=== PATIENT | male | born 1945 | race American Indian/Alaskan Native ===

== ENCOUNTER 2017-07-25 13:18 | Outpatient (CLI) | payer MEDICARE ==
[2017-07-25] MEDS ORDERED: XYLOCAINE TOPICAL 4% TP ONE (14:00)
[2017-07-25] MEDS ORDERED: SILVER NITRATE TP ONE ×2 (14:29→16:52)
== END 2017-07-25 13:19 | disposition home or self-care (01) ==
LOC: WOUND 13:18
PROVIDERS: ATTEND Internal Medicine
DX: T87.43 Infection of amputation stump, right lower extremity (principal); I70.231 Atherosclerosis of native arteries of right leg with ulceration of thigh; L97.818 Non-pressure chronic ulcer of other part of right lower leg with other specified severity; K21.0 Gastro-esophageal reflux disease with esophagitis; D50.8 Other iron deficiency anemias; I10 Essential (primary) hypertension; E11.51 Type 2 diabetes mellitus with diabetic peripheral angiopathy without gangrene; F17.200 Nicotine dependence, unspecified, uncomplicated; Y83.2 Surgical operation with anastomosis, bypass or graft as the cause of abnormal reaction of the patient, or of later complication, without mention of misadventure at the time of the procedure
CPT/HCPCS: 11042; 11045; G0463

== ENCOUNTER 2017-08-01 12:46 | Outpatient (CLI) | payer MEDICARE ==
[2017-08-01] MEDS ORDERED: XYLOCAINE TOPICAL 4% TP ONE ×2 (13:26→13:28)
[2017-08-01] MEDS ORDERED: SILVER NITRATE TP ONE ×2 (14:24→14:25)
== END 2017-08-01 12:47 | disposition home or self-care (01) ==
LOC: WOUND 12:46
PROVIDERS: ATTEND Internal Medicine
DX: T87.89 Other complications of amputation stump (principal); I70.239 Atherosclerosis of native arteries of right leg with ulceration of unspecified site; E11.621 Type 2 diabetes mellitus with foot ulcer; L97.111 Non-pressure chronic ulcer of right thigh limited to breakdown of skin; E11.51 Type 2 diabetes mellitus with diabetic peripheral angiopathy without gangrene; D50.8 Other iron deficiency anemias; K21.0 Gastro-esophageal reflux disease with esophagitis; I10 Essential (primary) hypertension; F17.200 Nicotine dependence, unspecified, uncomplicated; Y83.5 Amputation of limb(s) as the cause of abnormal reaction of the patient, or of later complication, without mention of misadventure at the time of the procedure
CPT/HCPCS: 17250

== ENCOUNTER 2017-08-08 13:09 | Outpatient (CLI) | payer MEDICARE ==
[2017-08-08] MEDS ORDERED: XYLOCAINE TOPICAL 4% TP ONE ×2 (13:14→13:19)
== END 2017-08-08 13:10 | disposition home or self-care (01) ==
LOC: WOUND 13:09
PROVIDERS: ATTEND Internal Medicine
DX: T87.89 Other complications of amputation stump (principal); I70.231 Atherosclerosis of native arteries of right leg with ulceration of thigh; E11.622 Type 2 diabetes mellitus with other skin ulcer; L97.811 Non-pressure chronic ulcer of other part of right lower leg limited to breakdown of skin; E11.51 Type 2 diabetes mellitus with diabetic peripheral angiopathy without gangrene; K21.0 Gastro-esophageal reflux disease with esophagitis; D50.8 Other iron deficiency anemias; I10 Essential (primary) hypertension; F17.200 Nicotine dependence, unspecified, uncomplicated; Y83.5 Amputation of limb(s) as the cause of abnormal reaction of the patient, or of later complication, without mention of misadventure at the time of the procedure

== ENCOUNTER 2017-12-31 13:36 | Observation (INO) | payer OTHER, MEDICARE ==
[2017-12-31] MEDS ORDERED: ASPIRIN PO ONE (13:56)
[2017-12-31 14:27] LABS: Basophils # (Auto) 0.1 K/mm3 (0.0-0.1); Basophils % (Auto) 1.2 % (0.0-1.8); Eosinophils % (Auto) 0.3 % (0.0-4.3); Hematocrit 42.1 % (35.5-45.6); Lymphocytes # (Auto) 2.2 K/mm3 (1.2-5.4); Mean Corpuscular HGB Conc 33 % (32-34); Mean Corpuscular Hemoglobin 31 pg (28-32); Mean Corpuscular Volume 93 fl (84-94); Monocytes % (Auto) 10.7 % (0.0-7.3); Platelet Count 227 K/mm3 (140-440); Red Blood Count 4.51 M/mm3 (3.65-5.03); Red Cell Distribution Width 13.4 % (13.2-15.2)
[2017-12-31 14:54] LABS: BUN/Creatinine Ratio 17; Blood Urea Nitrogen 17 mg/dL (9-20); Hemolysis Index 17
[2017-12-31] MEDS ORDERED: NACL 0.9% 1000 ML 500 ML IV ONE (15:10)
--- NOTE | 2017-12-31 15:31 | Emergency Department Report ---
ED General Adult HPI - General Chief complaint: Chest Pain Stated complaint: POSSIBLE CARDIAC Time Seen by Provider: 12/31/17 14:42 Source: EMS Mode of arrival: Stretcher Limitations: No Limitations - History of Present Illness Initial comments: This is a 72-year-old male apparently has some degree of dementia. I am told that he was transported to this facility for evaluation of chest pain. He just tells me that he has chest pain at times. At this point he is complaining of urinary guarding and occasionally discomfort in the suprapubic region. He does not complain of any acute pain. He denies shortness of breath. It is relatively able to give a review of systems. He does not complain of shortness of breath. He denies cough. He denies fever or chills. The patient denies any bedsores. He has bilateral AKA, dyslipidemia and diabetes. -: unknown Location: chest Severity scale (0 -10): 0 Associated Symptoms: denies other symptoms (except as above indicated) - Related Data Home Medications Medication Instructions Recorded Confirmed Last Taken Aspirin 1 tab PO DAILY 12/05/13 12/05/13 12/04/13 Folic Acid 1 mg PO DAILY 12/05/13 12/05/13 12/05/13 Gabapentin 1 cap PO TID 12/05/13 12/05/13 12/05/13 Losartan [Cozaar] 1 tab PO DAILY 12/05/13 12/05/13 12/05/13 Pravastatin Sodium [Pravastatin] 40 mg PO DAILY 12/05/13 12/05/13 Unknown amLODIPine [Norvasc] 1 tab PO DAILY 12/05/13 12/05/13 12/05/13 buPROPion [Wellbutrin] 150 mg PO DAILY 12/05/13 12/05/13 12/05/13 metFORMIN [Glucophage] 1 tab PO BID 12/05/13 12/05/13 12/05/13 traMADol [Ultram 50 MG tab] 1 tab PO PRN 12/05/13 12/05/13 Unknown Allergies Allergy/AdvReac Type Severity Reaction Status Date / Time No Known Allergies Allergy Verified 12/05/13 12:18 ED Review of Systems ROS: Stated complaint: POSSIBLE CARDIAC Other details as noted in HPI Constitutional: denies: chills, fever Eyes: denies: eye pain, eye discharge, vision change ENT: denies: ear pain, throat pain Respiratory: denies: cough, shortness of breath, wheezing Cardiovascular: chest pain. denies: palpitations Endocrine: no symptoms reported Gastrointestinal: denies: abdominal pain, nausea, diarrhea Genitourinary: denies: urgency, dysuria Musculoskeletal: denies: back pain, joint swelling, arthralgia Skin: denies: rash, lesions Neurological: denies: headache, weakness, paresthesias Psychiatric: denies: anxiety, depression Hematological/Lymphatic: denies: easy bleeding, easy bruising ED Past Medical Hx - Past Medical History Hx Hypertension: Yes Hx Diabetes: Yes Hx Renal Disease: Yes (CKD) Hx Asthma: No Hx COPD: No Hx Tuberculosis: No - Social History Smoking Status: Never Smoker - Medications Home Medications: Home Medications Medication Instructions Recorded Confirmed Last Taken Type Aspirin 1 tab PO DAILY 12/05/13 12/05/13 12/04/13 History Folic Acid 1 mg PO DAILY 12/05/13 12/05/13 12/05/13 History Gabapentin 1 cap PO TID 12/05/13 12/05/13 12/05/13 History Losartan [Cozaar] 1 tab PO DAILY 12/05/13 12/05/13 12/05/13 History Pravastatin Sodium [Pravastatin] 40 mg PO DAILY 12/05/13 12/05/13 Unknown History amLODIPine [Norvasc] 1 tab PO DAILY 12/05/13 12/05/13 12/05/13 History buPROPion [Wellbutrin] 150 mg PO DAILY 12/05/13 12/05/13 12/05/13 History metFORMIN [Glucophage] 1 tab PO BID 12/05/13 12/05/13 12/05/13 History traMADol [Ultram 50 MG tab] 1 tab PO PRN 12/05/13 12/05/13 Unknown History ED Physical Exam - General Limitations: No Limitations General appearance: alert, in no apparent distress - Head Head exam: Present: atraumatic, normocephalic - Eye Eye exam: Present: normal appearance. Absent: scleral icterus - ENT ENT exam: Present: mucous membranes moist - Neck Neck exam: Present: normal inspection. Absent: tenderness, meningismus - Respiratory Respiratory exam: Present: normal lung sounds bilaterally. Absent: respiratory distress - Cardiovascular Cardiovascular Exam: Present: regular rate, normal rhythm. Absent: systolic murmur, diastolic murmur, rubs, gallop - GI/Abdominal GI/Abdominal exam: Present: soft, normal bowel sounds. Absent: distended, tenderness, guarding, rebound, rigid - Rectal Rectal exam: Present: deferred - Extremities Exam Extremities exam: Present: other (bilateral AKA) - Back Exam Back exam: Present: normal inspection - Neurological Exam Neurological exam: Present: alert, oriented X3, CN II-XII intact. Absent: motor sensory deficit - Psychiatric Psychiatric exam: Present: normal mood, flat affect - Skin Skin exam: Present: warm, dry, intact, normal color. Absent: rash ED Course Vital Signs 12/31/17 12/31/17 12/31/17 13:47 13:56 14:00 Temperature 98.8 F Pulse Rate 57 L Respiratory Rate Blood Pressure 179/82 Blood Pressure [Right] O2 Sat by Pulse 96 100 100 Oximetry 12/31/17 12/31/17 12/31/17 14:04 14:15 14:30 Temperature 97.9 F Pulse Rate 58 L 54 L 54 L Respiratory 18 19 21 Rate Blood Pressure 168/75 169/80 Blood Pressure 179/83 [Right] O2 Sat by Pulse 100 100 100 Oximetry 12/31/17 12/31/17 12/31/17 14:45 15:00 15:16 Temperature Pulse Rate 52 L 54 L Respiratory 12 19 16 Rate Blood Pressure 167/76 171/81 213/97 Blood Pressure [Right] O2 Sat by Pulse 100 100 100 Oximetry 12/31/17 12/31/17 12/31/17 15:30 15:46 16:00 Temperature Pulse Rate Respiratory 20 14 17 Rate Blood Pressure 190/89 222/103 222/103 Blood Pressure [Right] O2 Sat by Pulse 100 100 100 Oximetry 12/31/17 12/31/17 12/31/17 16:15 16:30 16:45 Temperature Pulse Rate Respiratory 17 25 H 20 Rate Blood Pressure 205/87 228/97 203/90 Blood Pressure [Right] O2 Sat by Pulse 100 100 100 Oximetry 12/31/17 12/31/17 12/31/17 17:00 17:15 17:30 Temperature Pulse Rate Respiratory 20 16 25 H Rate Blood Pressure 205/92 199/94 206/91 Blood Pressure [Right] O2 Sat by Pulse 100 100 100 Oximetry 12/31/17 12/31/17 12/31/17 17:45 18:00 18:16 Temperature Pulse Rate Respiratory 12 12 13 Rate Blood Pressure 223/114 199/85 199/85 Blood Pressure [Right] O2 Sat by Pulse 100 100 99 Oximetry 12/31/17 18:30 Temperature Pulse Rate Respiratory 19 Rate Blood Pressure 199/85 Blood Pressure [Right] O2 Sat by Pulse 98 Oximetry - Reevaluation(s) Reevaluation #1: Patient did not complain of any acute pain in the emergency department. He does have multiple risk factors for coronary artery disease. He is referred to Dr. Martinez Pitts for further care and evaluation. 12/31/17 19:29 12/31/17 19:34 ED Medical Decision Making - Lab Data Result diagrams: 12/31/17 14:07 12/31/17 14:07 Laboratory Results - last 24 hr 12/31/17 12/31/17 12/31/17 13:55 14:07 14:07 WBC 9.7 RBC 4.51 Hgb 14.0 Hct 42.1 MCV 93 MCH 31 MCHC 33 RDW 13.4 Plt Count 227 Lymph % (Auto) 23.0 [place] % (Auto) 10.7 H Eos % (Auto) 0.3 Baso % (Auto) 1.2 Lymph # 2.2 [place] # 1.0 H Eos # 0.0 Baso # 0.1 Seg Neutrophils % 64.8 Seg Neutrophils # 6.3 PT INR APTT Sodium 136 L Potassium 3.7 Chloride 102.3 Carbon Dioxide 18 L Anion Gap 19 BUN 17 Creatinine 1.0 Estimated GFR > 60 BUN/Creatinine Ratio 17 Glucose 94 POC Glucose 84 Lactic Acid Calcium 9.0 Troponin T < 0.010 12/31/17 12/31/17 16:13 16:13 WBC RBC Hgb Hct MCV MCH MCHC RDW Plt Count Lymph % (Auto) [place] % (Auto) Eos % (Auto) Baso % (Auto) Lymph # [place] # Eos # Baso # Seg Neutrophils % Seg Neutrophils # PT 13.6 INR 0.99 APTT 37.7 H Sodium Potassium Chloride Carbon Dioxide Anion Gap BUN Creatinine Estimated GFR BUN/Creatinine Ratio Glucose POC Glucose Lactic Acid 1.80 Calcium Troponin T Laboratory Results - last 24 hr 12/31/17 12/31/17 12/31/17 13:55 14:07 14:07 WBC 9.7 RBC 4.51 Hgb 14.0 Hct 42.1 MCV 93 MCH 31 MCHC 33 RDW 13.4 Plt Count 227 Lymph % (Auto) 23.0 [place] % (Auto) 10.7 H Eos % (Auto) 0.3 Baso % (Auto) 1.2 Lymph # 2.2 [place] # 1.0 H Eos # 0.0 Baso # 0.1 Seg Neutrophils % 64.8 Seg Neutrophils # 6.3 PT INR APTT Sodium 136 L Potassium 3.7 Chloride 102.3 Carbon Dioxide 18 L Anion Gap 19 BUN 17 Creatinine 1.0 Estimated GFR > 60 BUN/Creatinine Ratio 17 Glucose 94 POC Glucose 84 Lactic Acid Calcium 9.0 Magnesium Total Bilirubin Direct Bilirubin Indirect Bilirubin AST ALT Alkaline Phosphatase Troponin T < 0.010 NT-Pro-B Natriuret Pep Total Protein Albumin Albumin/Globulin Ratio Urine Color Urine Turbidity Urine pH Ur Specific [place] Urine Protein Urine Glucose (UA) Urine Ketones Urine Blood Urine Nitrite Urine Bilirubin Urine Urobilinogen Ur Leukocyte Esterase Urine WBC (Auto) Urine RBC (Auto) U Epithel Cells (Auto) Urine Bacteria (Auto) Hyaline Casts 12/31/17 12/31/17 12/31/17 16:00 16:13 16:13 WBC RBC Hgb Hct MCV MCH MCHC RDW Plt Count Lymph % (Auto) [place] % (Auto) Eos % (Auto) Baso % (Auto) Lymph # [place] # Eos # Baso # Seg Neutrophils % Seg Neutrophils # PT 13.6 INR 0.99 APTT 37.7 H Sodium Potassium Chloride Carbon Dioxide Anion Gap BUN Creatinine Estimated GFR BUN/Creatinine Ratio Glucose POC Glucose Lactic Acid Calcium Magnesium Total Bilirubin Direct Bilirubin Indirect Bilirubin AST ALT Alkaline Phosphatase Troponin T < 0.010 NT-Pro-B Natriuret Pep Total Protein Albumin Albumin/Globulin Ratio Urine Color Yellow Urine Turbidity Clear Urine pH 5.0 Ur Specific [place] 1.009 Urine Protein 100 mg/dl Urine Glucose (UA) Neg Urine Ketones Neg Urine Blood Neg Urine Nitrite Neg Urine Bilirubin Neg Urine Urobilinogen < 2.0 Ur Leukocyte Esterase Neg Urine WBC (Auto) 2.0 Urine RBC (Auto) 3.0 U Epithel Cells (Auto) 1.0 Urine Bacteria (Auto) 1+ Hyaline Casts 3 12/31/17 12/31/17 16:13 16:13 WBC RBC Hgb Hct MCV MCH MCHC RDW Plt Count Lymph % (Auto) [place] % (Auto) Eos % (Auto) Baso % (Auto) Lymph # [place] # Eos # Baso # Seg Neutrophils % Seg Neutrophils # PT INR APTT Sodium Potassium Chloride Carbon Dioxide Anion Gap BUN Creatinine Estimated GFR BUN/Creatinine Ratio Glucose POC Glucose Lactic Acid 1.80 Calcium Magnesium 1.80 Total Bilirubin 0.50 Direct Bilirubin < 0.2 Indirect Bilirubin 0.3 AST 36 ALT 21 Alkaline Phosphatase 77 Troponin T NT-Pro-B Natriuret Pep 1394 H Total Protein 7.4 Albumin 3.5 L Albumin/Globulin Ratio 0.9 Urine Color Urine Turbidity Urine pH Ur Specific [place] Urine Protein Urine Glucose (UA) Urine Ketones Urine Blood Urine Nitrite Urine Bilirubin Urine Urobilinogen Ur Leukocyte Esterase Urine WBC (Auto) Urine RBC (Auto) U Epithel Cells (Auto) Urine Bacteria (Auto) Hyaline Casts - EKG Data -: EKG Interpreted by Me EKG shows normal: sinus rhythm, axis, intervals, QRS complexes, ST-T waves Rate: bradycardia - EKG Data Interpretation: nonspecific ST-T wave emi - Radiology Data Radiology results: report reviewed interpreted by me: Chest x-ray no acute process Critical care attestation.: If time is entered above; I have spent that time in minutes in the direct care of this critically ill patient, excluding procedure time. ED Disposition Clinical Impression: Blood CO2 decreased Chest pain Qualifiers: Chest pain type: unspecified Qualified Code(s): R07.9 - Chest pain, unspecified Type 2 diabetes mellitus Qualifiers: Diabetes mellitus long term care social worker insulin use: without assisted use Diabetes mellitus complication status: without complication Qualified Code(s): E11.9 - Type 2 diabetes mellitus without complications Disposition: TO HOME OR SELFCARE Is pt being admited?: Yes Does the pt Need Aspirin: Yes Condition: Stable Time of Disposition: 19:34
--- NOTE | 2017-12-31 15:41 | XRay Report ---
FINAL REPORT EXAM: XR CHEST 1V AP HISTORY: hypertension TECHNIQUE: Frontal chest radiograph. PRIORS: 06/20/2017. FINDINGS: Unchanged aortic calculi. The cardiomediastinal silhouette is normal. No focal consolidation. No pleural effusion. No pneumothorax. No acute osseous abnormality. IMPRESSION: No acute cardiopulmonary process.
[2017-12-31 16:40] LABS: INR 0.99 (0.87-1.13)
[2017-12-31 16:41] LABS: Partial Thromboplastin Time 37.7 Sec. (24.2-36.6)
[2017-12-31 17:06] LABS: Alanine Aminotransferase 21 units/L (7-56); Albumin 3.5 g/dL (3.9-5)
[2017-12-31 17:12] LABS: Bacteria,Urine 1+ /HPF (Negative); Bilirubin,Urine NEG (Negative); Blood,Urine NEG (Negative); Color,Urine Yellow (Yellow); Hyaline Casts,Urine 3 /LPF; Urobilinogen,Urine < 2.0 mg/dL (<2.0)
[2017-12-31 17:13] LABS: Bilirubin,Direct < 0.2 mg/dL (0-0.2)
--- NOTE | 2017-12-31 17:46 | History and Physical Report ---
History of Present Illness Chief complaint: I dont feel good History of present illness: 72 YO Male with HTN, DM, HLD,Dementia, Obesity presents to ED for evaluation. Pt states that he does not feel good, and also states that his chest hurts. Pt does not provide further history. Pt family is at bedside and provides further history. Pt family states that patient has been complaining of pain in his chest and "not feeling too good" over the past 2 days. No reports of fever, chills, palpitation, NVD, Syncope, Trauma, unintentional weight loss, night sweats, productive cough, or recent ill contacts. EMS notified, and patient transported to [facility] for further care and evaluation. Pt seen and evaluated in ED and found to have evidence of new onset CHF, ACS, with concomitant bradycardia. Pt admitted to telemetry. Cardiology team consulted in ED. Past History Past Medical History: diabetes, hypertension, hyperlipidemia Past Surgical History: Other (Bilateral BKA) Social history: single, lives with family Family history: diabetes, hypertension Medications and Allergies Allergies Allergy/AdvReac Type Severity Reaction Status Date / Time No Known Allergies Allergy Verified 12/05/13 12:18 Home Medications Medication Instructions Recorded Confirmed Last Taken Type Aspirin 1 tab PO DAILY 12/05/13 12/05/13 12/04/13 History Folic Acid 1 mg PO DAILY 12/05/13 12/05/13 12/05/13 History Gabapentin 1 cap PO TID 12/05/13 12/05/13 12/05/13 History Losartan [Cozaar] 1 tab PO DAILY 12/05/13 12/05/13 12/05/13 History Pravastatin Sodium [Pravastatin] 40 mg PO DAILY 12/05/13 12/05/13 Unknown History amLODIPine [Norvasc] 1 tab PO DAILY 12/05/13 12/05/13 12/05/13 History buPROPion [Wellbutrin] 150 mg PO DAILY 12/05/13 12/05/13 12/05/13 History metFORMIN [Glucophage] 1 tab PO BID 12/05/13 12/05/13 12/05/13 History traMADol [Ultram 50 MG tab] 1 tab PO PRN 12/05/13 12/05/13 Unknown History Review of Systems ROS unobtainable: due to mental status Exam - Constitutional Vitals: Temp Pulse Resp BP Pulse Ox 97.9 F 54 L 20 190/89 100 12/31/17 14:04 12/31/17 15:00 12/31/17 15:30 12/31/17 15:30 12/31/17 15:30 General appearance: Present: mild distress - EENT Eyes: Present: PERRL ENT: hearing intact, clear oral mucosa - Neck Neck: Present: supple, normal ROM - Respiratory Respiratory effort: normal Respiratory: bilateral: diminished - Cardiovascular Heart Sounds: Present: S1 & S2. Absent: rub, click - Extremities Extremities: pulses symmetrical, No edema Peripheral Pulses: within normal limits - Integumentary Integumentary: Present: clear, dry, decreased turgor - Musculoskeletal Musculoskeletal: generalized weakness - Psychiatric Psychiatric: no intact judgment & insight, no memory intact - Neurologic Neurologic: no gait normal Results - Labs CBC & Chem 7: 12/31/17 14:07 12/31/17 14:07 Labs: Abnormal lab results 12/31/17 12/31/17 12/31/17 Range/Units 14:07 14:07 16:13 [place] % (Auto) 10.7 H (0.0-7.3) % [place] # 1.0 H (0.0-0.8) K/mm3 APTT 37.7 H (24.2-36.6) Sec. Sodium 136 L (137-145) mmol/L Carbon Dioxide 18 L (22-30) mmol/L NT-Pro-B Natriuret Pep (0-900) pg/mL Albumin (3.9-5) g/dL 12/31/17 Range/Units 16:13 [place] % (Auto) (0.0-7.3) % [place] # (0.0-0.8) K/mm3 APTT (24.2-36.6) Sec. Sodium (137-145) mmol/L Carbon Dioxide (22-30) mmol/L NT-Pro-B Natriuret Pep 1394 H (0-900) pg/mL Albumin 3.5 L (3.9-5) g/dL Assessment and Plan - Patient Problems (1) CHF (congestive heart failure) Current Visit: Yes Status: Acute Qualifiers: Heart failure type: systolic Heart failure chronicity: acute Qualified Code(s): I50.21 - Acute systolic (congestive) heart failure Plan to address problem: Admit to telemetry, Echo, strict I/O, monitor uop q shift, daily weight, diuresis, Afterload reduction, chest x ray, d dimer, bnp (2) ACS (acute coronary syndrome) Current Visit: Yes Status: Acute Plan to address problem: Admit to telemetry, serial cardiac enzymes, ekg, morphine, supplemental oxygen, nitro, aspirin (3) Acidosis Current Visit: Yes Status: Acute Plan to address problem: IVF resuscitation, repeat bmp, supportive care. (4) Hypertensive urgency Current Visit: Yes Status: Acute Plan to address problem: Monitor bp q shift, IV hydralazine prn, supportive care, continue medical management (5) Bradycardia Current Visit: Yes Status: Acute Plan to address problem: admit to telemetry, supportive care, cardiology consulted (6) DVT prophylaxis Current Visit: Yes Status: Acute Plan to address problem: SCD to BLE while in bed.
[2017-12-31] MEDS ORDERED: BABY ASPIRIN PO STA (17:48)
[2017-12-31] MEDS ORDERED: MORPHINE IV PRN (17:48)
[2017-12-31] MEDS ORDERED: ZOFRAN IV PRN (17:48)
[2017-12-31] MEDS ORDERED: TYLENOL PO PRN (17:48)
[2017-12-31] MEDS ORDERED: NITROSTAT SL PRN (17:48)
[2017-12-31] MEDS ORDERED: PROVENTIL IH PRN (17:48)
[2017-12-31] MEDS ORDERED: SODIUM CHLORIDE FLUSH SYRINGE 10 ML IV PRN ×2 (17:48)
[2017-12-31] MEDS ORDERED: ULTRAM PO PRN (18:00)
[2017-12-31] MEDS ORDERED: NEURONTIN ONE (20:28)
[2017-12-31] MEDS: NEURONTIN PO SCH (20:37)
[2017-12-31 23:23] LABS: Free T4 (Free Thyroxine) 1.01 ng/dL (0.76-1.46)
[2017-12-31] MEDS: PEPCID PO SCH (23:33)
[2017-12-31] MEDS: PRAVACHOL PO SCH (23:34)
[2017-12-31] MEDS: SODIUM CHLORIDE FLUSH SYRINGE 10 ML IV SCH (23:34)
[2018-01-01] MEDS: APRESOLINE IV PRN (01:00)
[2018-01-01] MEDS: NEURONTIN PO SCH ×3 (08:00→21:29)
--- NOTE | 2018-01-01 09:26 | Consultation ---
History of Present Illness Consult date: 01/01/18 Consult reason: chest pain History of present illness: 72 year old -[place] male presented with precordial chest pain at rest. Disc is not associated with any diaphoresis or shortness of breath or dizziness. Patient admitted for further evaluation and management Past History Past Medical History: diabetes, hypertension, hyperlipidemia Past Surgical History: Other (Bilateral BKA) Social history: single, lives with family Family history: diabetes, hypertension Medications and Allergies Allergies Allergy/AdvReac Type Severity Reaction Status Date / Time No Known Allergies Allergy Verified 12/05/13 12:18 Home Medications Medication Instructions Recorded Confirmed Last Taken Type Aspirin 1 tab PO DAILY 12/05/13 12/05/13 12/04/13 History Folic Acid 1 mg PO DAILY 12/05/13 12/05/13 12/05/13 History Gabapentin 1 cap PO TID 12/05/13 12/05/13 12/05/13 History Losartan [Cozaar] 1 tab PO DAILY 12/05/13 12/05/13 12/05/13 History Pravastatin Sodium [Pravastatin] 40 mg PO DAILY 12/05/13 12/05/13 Unknown History amLODIPine [Norvasc] 1 tab PO DAILY 12/05/13 12/05/13 12/05/13 History buPROPion [Wellbutrin] 150 mg PO DAILY 12/05/13 12/05/13 12/05/13 History metFORMIN [Glucophage] 1 tab PO BID 12/05/13 12/05/13 12/05/13 History traMADol [Ultram 50 MG tab] 1 tab PO PRN 12/05/13 12/05/13 Unknown History Active Meds: Active Medications Acetaminophen (Tylenol) 650 mg PO Q4H PRN PRN Reason: Pain MILD(1-3)/Fever >100.5/WHITING Albuterol (Proventil) 2.5 mg IH Q4H PRN PRN Reason: Shortness Of Breath Amlodipine Besylate (Norvasc) 5 mg PO DAILY [facility] Bupropion HCl (Wellbutrin) 150 mg PO DAILY [facility] Famotidine (Pepcid) 20 mg PO BID [facility] Last Admin: 12/31/17 23:33 Dose: 20 mg Folic Acid (Folvite) 1 mg PO DAILY [facility] Gabapentin (Neurontin) 400 mg PO TID [facility] Last Admin: 12/31/17 20:37 Dose: 400 mg Hydralazine HCl (Apresoline) 5 mg IV Q6H PRN PRN Reason: Hypertension Last Admin: 01/01/18 01:00 Dose: 5 mg Losartan Potassium (Cozaar) 50 mg PO DAILY [facility] Morphine Sulfate (Morphine) 2 mg IV Q4H PRN PRN Reason: Pain, Moderate (4-6) Nitroglycerin (Nitrostat) 0.4 mg SL Q5M PRN PRN Reason: Chest Pain Ondansetron HCl (Zofran) 4 mg IV Q8H PRN PRN Reason: Nausea And Vomiting Pravastatin Sodium (Pravachol) 40 mg PO QHS [facility] Last Admin: 12/31/17 23:34 Dose: 40 mg Sodium Chloride (Sodium Chloride Flush Syringe 10 Ml) 10 ml IV BID [facility] Last Admin: 12/31/17 23:34 Dose: 10 ml Sodium Chloride (Sodium Chloride Flush Syringe 10 Ml) 10 ml IV PRN PRN PRN Reason: LINE FLUSH Sodium Chloride (Sodium Chloride Flush Syringe 10 Ml) 10 ml IV PRN PRN PRN Reason: LINE FLUSH Tramadol HCl (Ultram) 1 mg PO Q6H PRN PRN Reason: Pain, Moderate (4-6) Review of Systems Constitutional: no weight loss, no weight gain, no anorexia, no fatigue, no weakness, no malaise Ears, nose, mouth and throat: no ear pain, no ear discharge, no nasal congestion , no bleeding gums, no sore throat Cardiovascular: chest pain, shortness of breath Respiratory: no cough, no hemoptysis, no congestion, no pleurisy Gastrointestinal: no abdominal pain, no nausea, no vomiting Genitourinary Male: no dysuria, no hematuria, no flank pain, no urinary frequency, no urinary hesitancy Musculoskeletal: no neck stiffness, no neck pain, no shooting leg pain Integumentary: no rash, no pruritis, no redness, no sores Neurological: no head injury, no transient paralysis, no weakness, no parathesias Hematologic/Lymphatic: no easy bruising, no easy bleeding Allergic/Immunologic: no urticaria, no allergic rhinitis, no wheezing Physical Examination Vital Signs Temp Pulse BP Pulse Ox 98.8 F 57 L 179/82 96 12/31/17 13:47 12/31/17 13:47 12/31/17 13:47 12/31/17 13:47 General appearance: no acute distress, severe distress HEENT: Positive: PERRL, Normocephaly, Mucus Membranes Moist Neck: Positive: neck supple, trachea midline. Negative: JVD/HJR Cardiac: Positive: Reg Rate and Rhythm, Regular Rate, S1/S2, S4, PMI, Laterally Displaced Lungs: Positive: clear to auscultation, No Wheeze, Rales, Rhonchi Neuro: Positive: Grossly Intact Abdomen: Positive: Unremarkable, Soft, Active Bowel Sounds Skin: Positive: Clear Extremities: Present: Other (Bilateral BKA). Absent: edema Results 12/31/17 14:07 12/31/17 14:07 Cardiac Enzymes 12/31/17 Range/Units 16:13 AST 36 (5-40) units/L Coagulation 12/31/17 Range/Units 16:13 PT 13.6 (12.2-14.9) Sec. INR 0.99 (0.87-1.13) APTT 37.7 H (24.2-36.6) Sec. CBC 12/31/17 Range/Units 14:07 WBC 9.7 (4.5-11.0) K/mm3 RBC 4.51 (3.65-5.03) M/mm3 Hgb 14.0 (11.8-15.2) gm/dl Hct 42.1 (35.5-45.6) % Plt Count 227 (140-440) K/mm3 Lymph # 2.2 (1.2-5.4) K/mm3 [place] # 1.0 H (0.0-0.8) K/mm3 Eos # 0.0 (0.0-0.4) K/mm3 Baso # 0.1 (0.0-0.1) K/mm3 Comprehensive Metabolic Panel 12/31/17 12/31/17 Range/Units 14:07 16:13 Sodium 136 L (137-145) mmol/L Potassium 3.7 (3.6-5.0) mmol/L Chloride 102.3 (98-107) mmol/L Carbon Dioxide 18 L (22-30) mmol/L BUN 17 (9-20) mg/dL Creatinine 1.0 (0.8-1.5) mg/dL Glucose 94 (75-100) mg/dL Calcium 9.0 (8.4-10.2) mg/dL Direct Bilirubin < 0.2 (0-0.2) mg/dL Indirect Bilirubin 0.3 mg/dL AST 36 (5-40) units/L ALT 21 (7-56) units/L Alkaline Phosphatase 77 (35-129) units/L Total Protein 7.4 (6.3-8.2) g/dL Albumin 3.5 L (3.9-5) g/dL - EKG Interpretation EKG: sinus rhythm, normal axis EKG interpretations - Telemetry EKG Rhythm: Sinus Rhythm Assessment and Plan 1. Chest pain rule out underlying ischemic coronary artery disease. 2. Essential hypertension 3. Peripheral vascular disease status post bilateral above the knee amputation 4. Hyperlipidemia 5. Dementia Plan. Patient is currently stable. We will obtain an echocardiogram to assess global and regional LV function. Lexiscan MPI to rule out ischemic coronary artery disease. BNP elevated for the evaluation to rule out PE as per PCP
[2018-01-01] MEDS: COZAAR PO SCH (10:00)
[2018-01-01] MEDS: SODIUM CHLORIDE FLUSH SYRINGE 10 ML IV SCH ×2 (10:00→21:29)
[2018-01-01] MEDS: NORVASC PO SCH (10:00)
[2018-01-01] MEDS ORDERED: NON-FORMULARY (Pravastatin Sodium [Pravastatin] 40 MG) PO SCH (10:00)
[2018-01-01] MEDS: WELLBUTRIN PO SCH (10:00)
[2018-01-01] MEDS ORDERED: NON-FORMULARY (Folic Acid [Folic Acid] 1 MG) PO SCH (10:00)
[2018-01-01] MEDS: PEPCID PO SCH ×2 (11:36→21:29)
[2018-01-01] MEDS: FOLVITE PO SCH (11:36)
--- NOTE | 2018-01-01 11:51 | Progress Note ---
Assessment and Plan Assessment and plan: Chest pain. Cardiology recommends Lexiscan MPI to rule out ischemic coronary artery disease. However, test was canceled per Nurse. I will d/w cardiology. ECHO per cards Essential hypertension. Cont. BP meds Peripheral vascular disease status post bilateral above the knee amputation Hyperlipidemia. cont statins Dementia. supportive care History Interval history: No new issues Hospitalist Physical - Constitutional Vitals: Temp Pulse Resp BP Pulse Ox 98.1 F 68 18 148/67 93 01/01/18 05:13 01/01/18 05:13 01/01/18 05:13 01/01/18 05:13 01/01/18 05:13 General appearance: Present: no acute distress, severe distress - EENT Eyes: Present: PERRL, EOM intact ENT: hearing intact, clear oral mucosa, dentition normal - Neck Neck: Present: supple, normal ROM - Respiratory Respiratory effort: normal Respiratory: bilateral: CTA - Cardiovascular Rhythm: regular Heart Sounds: Present: S1 & S2. Absent: gallop, rub - Extremities Extremities: no ischemia, No edema, Full ROM - Abdominal General gastrointestinal: soft, non-tender, non-distended, normal bowel sounds - Integumentary Integumentary: Present: clear, warm, dry - Neurologic Neurologic: CNII-XII intact, moves all extremities Results - Labs CBC & Chem 7: 12/31/17 14:07 12/31/17 14:07 Labs: Laboratory Last Values WBC 9.7 K/mm3 (4.5-11.0) 12/31/17 14:07 RBC 4.51 M/mm3 (3.65-5.03) 12/31/17 14:07 Hgb 14.0 gm/dl (11.8-15.2) 12/31/17 14:07 Hct 42.1 % (35.5-45.6) 12/31/17 14:07 MCV 93 fl (84-94) 12/31/17 14:07 MCH 31 pg (28-32) 12/31/17 14:07 MCHC 33 % (32-34) 12/31/17 14:07 RDW 13.4 % (13.2-15.2) 12/31/17 14:07 Plt Count 227 K/mm3 (140-440) 12/31/17 14:07 Lymph % (Auto) 23.0 % (13.4-35.0) 12/31/17 14:07 [place] % (Auto) 10.7 % (0.0-7.3) H 12/31/17 14:07 Eos % (Auto) 0.3 % (0.0-4.3) 12/31/17 14:07 Baso % (Auto) 1.2 % (0.0-1.8) 12/31/17 14:07 Lymph # 2.2 K/mm3 (1.2-5.4) 12/31/17 14:07 [place] # 1.0 K/mm3 (0.0-0.8) H 12/31/17 14:07 Eos # 0.0 K/mm3 (0.0-0.4) 12/31/17 14:07 Baso # 0.1 K/mm3 (0.0-0.1) 12/31/17 14:07 Seg Neutrophils % 64.8 % (40.0-70.0) 12/31/17 14:07 Seg Neutrophils # 6.3 K/mm3 (1.8-7.7) 12/31/17 14:07 PT 13.6 Sec. (12.2-14.9) 12/31/17 16:13 INR 0.99 (0.87-1.13) 12/31/17 16:13 APTT 37.7 Sec. (24.2-36.6) H 12/31/17 16:13 D-Dimer 548.15 ng/mlDDU (0-234) H 12/31/17 16:13 Sodium 136 mmol/L (137-145) L 12/31/17 14:07 Potassium 3.7 mmol/L (3.6-5.0) 12/31/17 14:07 Chloride 102.3 mmol/L (98-107) 12/31/17 14:07 Carbon Dioxide 18 mmol/L (22-30) L 12/31/17 14:07 Anion Gap 19 mmol/L 12/31/17 14:07 BUN 17 mg/dL (9-20) 12/31/17 14:07 Creatinine 1.0 mg/dL (0.8-1.5) 12/31/17 14:07 Estimated GFR > 60 ml/min 12/31/17 14:07 BUN/Creatinine Ratio 17 % 12/31/17 14:07 Glucose 94 mg/dL (75-100) 12/31/17 14:07 POC Glucose 84 (70-105) 12/31/17 13:55 Hemoglobin A1c 5.9 % (4-6) 12/31/17 14:07 Lactic Acid 1.80 mmol/L (0.7-2.0) 12/31/17 16:13 Calcium 9.0 mg/dL (8.4-10.2) 12/31/17 14:07 Magnesium 1.80 mg/dL (1.7-2.3) 12/31/17 16:13 Total Bilirubin 0.50 mg/dL (0.1-1.2) 12/31/17 16:13 Direct Bilirubin < 0.2 mg/dL (0-0.2) 12/31/17 16:13 Indirect Bilirubin 0.3 mg/dL 12/31/17 16:13 AST 36 units/L (5-40) 12/31/17 16:13 ALT 21 units/L (7-56) 12/31/17 16:13 Alkaline Phosphatase 77 units/L (35-129) 12/31/17 16:13 Troponin T < 0.010 ng/mL (0.00-0.029) 12/31/17 22:15 NT-Pro-B Natriuret Pep 1394 pg/mL (0-900) H 12/31/17 16:13 Total Protein 7.4 g/dL (6.3-8.2) 12/31/17 16:13 Albumin 3.5 g/dL (3.9-5) L 12/31/17 16:13 Albumin/Globulin Ratio 0.9 % 12/31/17 16:13 TSH 0.716 mlU/mL (0.270-4.200) 12/31/17 22:15 Free T4 1.01 ng/dL (0.76-1.46) 12/31/17 22:15 Urine Color Yellow (Yellow) 12/31/17 16:00 Urine Turbidity Clear (Clear) 12/31/17 16:00 Urine pH 5.0 (5.0-7.0) 12/31/17 16:00 Ur Specific [place] 1.009 (1.003-1.030) 12/31/17 16:00 Urine Protein 100 mg/dl mg/dL (Negative) 12/31/17 16:00 Urine Glucose (UA) Neg mg/dL (Negative) 12/31/17 16:00 Urine Ketones Neg mg/dL (Negative) 12/31/17 16:00 Urine Blood Neg (Negative) 12/31/17 16:00 Urine Nitrite Neg (Negative) 12/31/17 16:00 Urine Bilirubin Neg (Negative) 12/31/17 16:00 Urine Urobilinogen < 2.0 mg/dL (<2.0) 12/31/17 16:00 Ur Leukocyte Esterase Neg (Negative) 12/31/17 16:00 Urine WBC (Auto) 2.0 /HPF (0.0-6.0) 12/31/17 16:00 Urine RBC (Auto) 3.0 /HPF (0.0-6.0) 12/31/17 16:00 U Epithel Cells (Auto) 1.0 /HPF (0-13.0) 12/31/17 16:00 Urine Bacteria (Auto) 1+ /HPF (Negative) 12/31/17 16:00 Hyaline Casts 3 /LPF 12/31/17 16:00
[2018-01-01] MEDS: PRAVACHOL PO SCH (21:29)
[2018-01-02] MEDS: APRESOLINE IV PRN ×2 (05:35→18:00)
--- NOTE | 2018-01-02 10:46 | Progress Note ---
Assessment and Plan Assessment and plan: Chest pain. Cardiology recommends Lexiscan MPI to rule out ischemic coronary artery disease. However, test was canceled per Nurse because pt has dementia. I d/w cardiology further. ECHO per Cards Essential hypertension. Cont. BP meds Peripheral vascular disease status post bilateral above the knee amputation Hyperlipidemia. cont statins Dementia. supportive care History Interval history: No new issues Hospitalist Physical - Constitutional Vitals: Temp Pulse Resp BP Pulse Ox 98.6 F 59 L 18 176/69 100 01/02/18 04:14 01/02/18 04:14 01/01/18 20:19 01/02/18 04:14 01/02/18 04:14 General appearance: Present: no acute distress - EENT Eyes: Present: PERRL, EOM intact ENT: hearing intact, clear oral mucosa, dentition normal - Neck Neck: Present: supple, normal ROM - Respiratory Respiratory effort: normal Respiratory: bilateral: CTA - Cardiovascular Rhythm: regular Heart Sounds: Present: S1 & S2. Absent: gallop, rub - Extremities Extremities: no ischemia, No edema, Full ROM - Abdominal General gastrointestinal: soft, non-tender, non-distended, normal bowel sounds - Integumentary Integumentary: Present: clear, warm, dry - Neurologic Neurologic: CNII-XII intact, moves all extremities Results - Labs CBC & Chem 7: 12/31/17 14:07 12/31/17 14:07 Labs: Laboratory Last Values WBC 9.7 K/mm3 (4.5-11.0) 12/31/17 14:07 RBC 4.51 M/mm3 (3.65-5.03) 12/31/17 14:07 Hgb 14.0 gm/dl (11.8-15.2) 12/31/17 14:07 Hct 42.1 % (35.5-45.6) 12/31/17 14:07 MCV 93 fl (84-94) 12/31/17 14:07 MCH 31 pg (28-32) 12/31/17 14:07 MCHC 33 % (32-34) 12/31/17 14:07 RDW 13.4 % (13.2-15.2) 12/31/17 14:07 Plt Count 227 K/mm3 (140-440) 12/31/17 14:07 Lymph % (Auto) 23.0 % (13.4-35.0) 12/31/17 14:07 [place] % (Auto) 10.7 % (0.0-7.3) H 12/31/17 14:07 Eos % (Auto) 0.3 % (0.0-4.3) 12/31/17 14:07 Baso % (Auto) 1.2 % (0.0-1.8) 12/31/17 14:07 Lymph # 2.2 K/mm3 (1.2-5.4) 12/31/17 14:07 [place] # 1.0 K/mm3 (0.0-0.8) H 12/31/17 14:07 Eos # 0.0 K/mm3 (0.0-0.4) 12/31/17 14:07 Baso # 0.1 K/mm3 (0.0-0.1) 12/31/17 14:07 Seg Neutrophils % 64.8 % (40.0-70.0) 12/31/17 14:07 Seg Neutrophils # 6.3 K/mm3 (1.8-7.7) 12/31/17 14:07 PT 13.6 Sec. (12.2-14.9) 12/31/17 16:13 INR 0.99 (0.87-1.13) 12/31/17 16:13 APTT 37.7 Sec. (24.2-36.6) H 12/31/17 16:13 D-Dimer 548.15 ng/mlDDU (0-234) H 12/31/17 16:13 Sodium 136 mmol/L (137-145) L 12/31/17 14:07 Potassium 3.7 mmol/L (3.6-5.0) 12/31/17 14:07 Chloride 102.3 mmol/L (98-107) 12/31/17 14:07 Carbon Dioxide 18 mmol/L (22-30) L 12/31/17 14:07 Anion Gap 19 mmol/L 12/31/17 14:07 BUN 17 mg/dL (9-20) 12/31/17 14:07 Creatinine 1.0 mg/dL (0.8-1.5) 12/31/17 14:07 Estimated GFR > 60 ml/min 12/31/17 14:07 BUN/Creatinine Ratio 17 % 12/31/17 14:07 Glucose 94 mg/dL (75-100) 12/31/17 14:07 POC Glucose 84 (70-105) 12/31/17 13:55 Hemoglobin A1c 5.9 % (4-6) 12/31/17 14:07 Lactic Acid 1.80 mmol/L (0.7-2.0) 12/31/17 16:13 Calcium 9.0 mg/dL (8.4-10.2) 12/31/17 14:07 Magnesium 1.80 mg/dL (1.7-2.3) 12/31/17 16:13 Total Bilirubin 0.50 mg/dL (0.1-1.2) 12/31/17 16:13 Direct Bilirubin < 0.2 mg/dL (0-0.2) 12/31/17 16:13 Indirect Bilirubin 0.3 mg/dL 12/31/17 16:13 AST 36 units/L (5-40) 12/31/17 16:13 ALT 21 units/L (7-56) 12/31/17 16:13 Alkaline Phosphatase 77 units/L (35-129) 12/31/17 16:13 Troponin T < 0.010 ng/mL (0.00-0.029) 01/01/18 11:36 NT-Pro-B Natriuret Pep 1394 pg/mL (0-900) H 12/31/17 16:13 Total Protein 7.4 g/dL (6.3-8.2) 12/31/17 16:13 Albumin 3.5 g/dL (3.9-5) L 12/31/17 16:13 Albumin/Globulin Ratio 0.9 % 12/31/17 16:13 TSH 0.716 mlU/mL (0.270-4.200) 12/31/17 22:15 Free T4 1.01 ng/dL (0.76-1.46) 12/31/17 22:15 Urine Color Yellow (Yellow) 12/31/17 16:00 Urine Turbidity Clear (Clear) 12/31/17 16:00 Urine pH 5.0 (5.0-7.0) 12/31/17 16:00 Ur Specific [place] 1.009 (1.003-1.030) 12/31/17 16:00 Urine Protein 100 mg/dl mg/dL (Negative) 12/31/17 16:00 Urine Glucose (UA) Neg mg/dL (Negative) 12/31/17 16:00 Urine Ketones Neg mg/dL (Negative) 12/31/17 16:00 Urine Blood Neg (Negative) 12/31/17 16:00 Urine Nitrite Neg (Negative) 12/31/17 16:00 Urine Bilirubin Neg (Negative) 12/31/17 16:00 Urine Urobilinogen < 2.0 mg/dL (<2.0) 12/31/17 16:00 Ur Leukocyte Esterase Neg (Negative) 12/31/17 16:00 Urine WBC (Auto) 2.0 /HPF (0.0-6.0) 12/31/17 16:00 Urine RBC (Auto) 3.0 /HPF (0.0-6.0) 12/31/17 16:00 U Epithel Cells (Auto) 1.0 /HPF (0-13.0) 12/31/17 16:00 Urine Bacteria (Auto) 1+ /HPF (Negative) 12/31/17 16:00 Hyaline Casts 3 /LPF 12/31/17 16:00
--- NOTE | 2018-01-02 10:58 | Progress Note ---
Assessment and Plan Chest pain Essential hypertension Peripheral vascular disease status post bilateral above the knee amputation Plan: Echocardiogram to assess global and regional LV function. Lexiscan MPI tomorrow morning to rule out ischemic coronary artery disease. Subjective Date of service: 01/02/18 Interval history: Patient is currently chest pain free. He complains of lower extremity pain. Objective Vital Signs Temp Pulse Resp BP Pulse Ox 01/02/18 04:14 98.6 F 59 L 176/69 100 01/01/18 23:51 98.1 F 62 177/68 97 01/01/18 22:00 97 01/01/18 21:06 58 L 01/01/18 20:19 18 01/01/18 19:54 97.8 F 55 L 181/80 93 01/01/18 16:17 70 99 01/01/18 12:53 63 99 - Physical Examination General: No Apparent Distress HEENT: Positive: PERRL Cardiac: Positive: Reg Rate and Rhythm Extremities: Present: Other (Bilateral BKA)
[2018-01-02] MEDS: NEURONTIN PO SCH ×3 (11:08→20:13)
[2018-01-02] MEDS: COZAAR PO SCH (11:08)
[2018-01-02] MEDS: PEPCID PO SCH ×2 (11:08→23:18)
[2018-01-02] MEDS: WELLBUTRIN PO SCH (11:08)
[2018-01-02] MEDS: FOLVITE PO SCH (11:09)
[2018-01-02] MEDS: NORVASC PO SCH (11:09)
[2018-01-02] MEDS: SODIUM CHLORIDE FLUSH SYRINGE 10 ML IV SCH ×2 (11:10→23:20)
[2018-01-02] MEDS ORDERED: ULTRAM PO PRN (11:30)
[2018-01-02] MEDS: APRESOLINE PO SCH ×2 (15:54→23:19)
[2018-01-02] MEDS: PRAVACHOL PO SCH (23:19)
[2018-01-03] MEDS: APRESOLINE PO SCH (06:27)
[2018-01-03] MEDS ORDERED: LEXISCAN IV ONE ×2 (08:33→08:37)
--- NOTE | 2018-01-03 10:49 | Discharge Summary ---
Providers - Providers Date of Admission: 12/31/17 17:48 Date of discharge: 01/03/18 Attending physician: KATARZYNA RAPHAEL MD 12/31/17 Consult to Cardiac Rehabilitation [CONS] Routine Reason For Exam: Phase I 12/31/17 17:48 Consult to Cardiology [CONS] Routine Consulting Provider: LEN RIVERS Reason For Exam: acs/chf Primary care physician: [employer] Hospitalization Reason for admission: chest pain Condition: Stable Pertinent studies: Cardiac stress test was negative Hospital course: Admission H&P 72 YO Male with HTN, DM, HLD,Dementia, Obesity presents to ED for evaluation. Pt states that he does not feel good, and also states that his chest hurts. Pt does not provide further history. Pt family is at bedside and provides further history. Pt family states that patient has been complaining of pain in his chest and "not feeling too good" over the past 2 days. No reports of fever, chills, palpitation, NVD, Syncope, Trauma, unintentional weight loss, night sweats, productive cough, or recent ill contacts. EMS notified, and patient transported to [facility] for further care and evaluation. Pt seen and evaluated in ED and found to have evidence of new onset CHF, ACS, with concomitant bradycardia. Pt admitted to telemetry. Cardiology team consulted in ED. Patient was admitted to the floor for chest pain, serial troponins were negative, cardiac stress test was done and negative for acute ischemia. Chest pain subsided. Patient was hemodynamically stable. Cardiology consult appreciated. Patient discharged home in stable condition. Disposition: DC-30 STILL A PATIENT Time spent for discharge: 32 minutes - Discharge Diagnoses (1) PAD (peripheral artery disease) Status: Chronic (2) S/P bilateral above knee amputation Status: Chronic (3) Chest pain Status: Acute Qualifiers: Chest pain type: unspecified Qualified Code(s): R07.9 - Chest pain, unspecified (4) Type 2 diabetes mellitus Status: Chronic Qualifiers: Diabetes mellitus manager long term care insulin use: without manager long term care use Diabetes mellitus complication status: without complication Qualified Code(s): E11.9 - Type 2 diabetes mellitus without complications Core Measure Documentation - Palliative Care Palliative Care/ Comfort Measures: Not Applicable - Core Measures Any of the following diagnoses?: none Exam - Physical Exam Narrative exam: Not in cardiopulmonary distress. The patient appeared well nourished and normally developed. Vital signs as documented. Head exam is unremarkable. No scleral icterus . Neck is without jugular venous distension, thyromegaly, or carotid bruits. Lungs are clear to auscultation. Cardiac exam reveals regular rate and Rhythm. First and second heart sounds normal. No murmurs, rubs or gallops. Abdominal exam reveals normal bowel sounds, no masses, no organomegaly and no aortic enlargement. Extremities bilateral AKA. STAFF REPORTER: Alert and oriented 3. - Constitutional Vitals: Temp Pulse Resp BP Pulse Ox 97.9 F 62 18 155/70 98 01/03/18 06:19 01/03/18 06:27 01/03/18 06:19 01/03/18 06:27 01/03/18 06:19 Plan Activity: advance as tolerated, other (AKA) Weight Bearing Status: Non-Weight Bearing Diet: low cholesterol, diabetic Additional Instructions: follow at [facility] 1-2 weeks Follow up with: PRIMARY CARE, [Primary Care Provider] - 3-5 Days Prescriptions: traMADol [Ultram 50 MG tab] 50 mg PO Q6H PRN #20 tablet PRN Reason: Pain, Moderate (4-6)
[2018-01-03] MEDS: NORVASC PO SCH (10:59)
[2018-01-03] MEDS: COZAAR PO SCH (10:59)
[2018-01-03] MEDS: PEPCID PO SCH (10:59)
[2018-01-03] MEDS: FOLVITE PO SCH (10:59)
[2018-01-03] MEDS: SODIUM CHLORIDE FLUSH SYRINGE 10 ML IV SCH (10:59)
[2018-01-03] MEDS: NEURONTIN PO SCH (11:08)
[2018-01-03] MEDS: WELLBUTRIN PO SCH (11:09)
[2018-01-03 13:16] VITALS: BP 150/69
--- NOTE | 2018-01-07 04:19 | Treadmill Report ---
THALLIUM STRESS TEST LEFT VENTRICLE: Left ventricular chamber size is within normal spread. Perfusion study demonstrates homogeneous uptake of the tracer in all segments. GATED analysis demonstrates normal LV function, ejection fraction 68%. CONCLUSION: Normal myocardial perfusion study. [facility]# [id number] [place]
== END 2018-01-03 14:18 | disposition home or self-care (01) ==
LOC: ED 13:36 → INTOOBSV 17:48 → 4A 17:48
PROVIDERS: ADMIT Internal Medicine; ATTEND Internal Medicine
DX: I24.9 Acute ischemic heart disease, unspecified (principal); I13.0 Hypertensive heart and chronic kidney disease with heart failure and stage 1 through stage 4 chronic kidney disease, or unspecified chronic kidney disease; E11.22 Type 2 diabetes mellitus with diabetic chronic kidney disease; I50.21 Acute systolic (congestive) heart failure; N18.9 Chronic kidney disease, unspecified; R00.1 Bradycardia, unspecified; I16.0 Hypertensive urgency; E87.2 Acidosis; E78.5 Hyperlipidemia, unspecified; E66.9 Obesity, unspecified; F03.90 Unspecified dementia, unspecified severity, without behavioral disturbance, psychotic disturbance, mood disturbance, and anxiety; Z89.612 Acquired absence of left leg above knee; Z89.611 Acquired absence of right leg above knee; Z68.32 Body mass index [BMI] 32.0-32.9, adult; Z82.49 Family history of ischemic heart disease and other diseases of the circulatory system
CPT/HCPCS: 36415; 71045; 78452; 80048; 80074; 81001; 82140; 82962; 83036; 83735; 83880; 84439; 84443; 84484; 85025; 85379; 85610; 85730; 87040; 87086; 93005; 93010; 93017; 93306; 94760; 96374; 96376; 99285; A9270; A9502; G0378; J0360; J2785; J7030